=== PATIENT | female | born 1970 | race Caucasian/White ===

== ENCOUNTER 2016-04-16 01:01 | Emergency (ER) | payer BC ==
[~2016-04-16] VITALS: Ht 180.3 cm; Wt 87.1 kg
[~2016-04-16 01:01] MED LIST: DARVOCET N 1001 TAB PO; HYCOSAMINE PO; NKHM; PERCOCET 325 MG1 TA5 PO; WELLBUTRIN SR150 MG PO; WELLBUTRIN100 MG PO
[2016-04-16] MEDS ORDERED: WELLBUTRIN SR150 MG PO (01:31)
[2016-04-16] MEDS ORDERED: WELLBUTRIN XL150 MG PO (01:32)
[2016-04-16] MEDS ORDERED: BUPROPION HCL150 M1 PO (01:33)
[2016-04-16 01:44] LABS: BASO # 0.1 10*3/uL (0.0-0.1); BASO % 0.9 % (0.0-1.0); EOS # 0.3 10*3/uL (0.0-0.4); EOS % 3.4 % (1.0-4.0); HEMATOCRIT 40.5 % (37.0-47.0); HEMOGLOBIN 13.7 g/dl (12.0-16.0); LYMPH # 1.3 10*3/uL (1.3-4.4); LYMPH % 17.2 % (27.0-41.0); MEAN CELL VOLUME 91.8 fl (81.0-99.0); MEAN CORPUSCULAR HGB 31.1 pg (27.0-31.0); MEAN CORPUSCULAR HGB CONC 33.8 g/dl (33.0-37.0); MEAN PLATELET VOLUME 9.5 fl (9.6-12.3); MONO # 1.1 10*3/uL (0.1-1.0); MONO % 13.9 % (3.0-9.0); NEUT % 64.1 % (47.0-73.0); PLATELET COUNT AUTOMATED 221 10*3/uL (130-400); RED BLOOD COUNT 4.41 10*6/uL (4.10-5.10); RED CELL DISTRI WIDTH 12.5 % (0-14.5); WHITE BLOOD COUNT 7.7 10*3/uL (4.8-10.8)
[2016-04-16 02:02] LABS: ALBUMIN 3.6 gm/dl (3.1-4.5); ALKALINE PHOSPHATASE 90 U/L (45-117); BILIRUBIN, DIRECT 0.1 mg/dL (0.0-0.2); BILIRUBIN, TOTAL 0.6 mg/dl (0.2-1.0); BUN 8 mg/dl (7-24); CARBON DIOXIDE 26 mmol/L (21-32); CHLORIDE 104 mmol/L (98-107); EST GLOM FILT AFRICAN AMERICAN > 60 ml/min; GLUCOSE 96 mg/dL (65-99); SGOT/AST 27 IU/L (3-35); SGPT/ALT 65 U/L (12-78); SODIUM 141 mmol/L (136-145); TOTAL PROTEIN 7.1 gm/dL (6.4-8.2)
[2016-04-16 02:03] LABS: TROPONIN I < 0.015 ng/ml (<0.5)
[2016-04-16] MEDS ORDERED: HYDROCODONE BIT1 T11 PO (02:57)
[2016-04-16] MEDS ORDERED: ZOFRAN ODT4 MG SL (02:57)
[2016-04-16] MEDS ORDERED: PROTONIX40 MG PO (02:57)
[2016-05-06] MEDS ORDERED: LOTRONEX PO (08:58)
[2016-05-07] MEDS ORDERED: Zofran4 MG PO (12:07)
[2016-05-07] MEDS ORDERED: NORCO 5-325 TA1 EACH PO (12:08)
== END 2016-04-16 03:11 | disposition home or self-care (01) ==
LOC: ED 01:01
PROVIDERS: Emergency Medicine
DX: R10.13 Epigastric pain (principal); R11.10 Vomiting, unspecified; Z88.0 Allergy status to penicillin; Z79.899 Other long term (current) drug therapy

== ENCOUNTER → 2016-06-07 | Outpatient (CLI) | payer BC ==
[~2016-06-07] MED LIST changes: +BUPROPION HCL150 M1 PO; +HYDROCODONE BIT1 T11 PO; +LOTRONEX PO; +NORCO 5-325 TA1 EACH PO; +PROTONIX40 MG PO; +WELLBUTRIN XL150 MG PO; +ZOFRAN ODT4 MG SL; +Zofran4 MG PO
== END | disposition home or self-care (01) ==
LOC: RESCLI 15:16
DX: L98.9 Disorder of the skin and subcutaneous tissue, unspecified (principal); W55.11XA Bitten by horse, initial encounter; Z88.0 Allergy status to penicillin

== ENCOUNTER → 2016-11-15 | Outpatient (CLI) | payer OTHER, BC | END | disposition home or self-care (01) | LOC: ORTHO 08:58 | DX: M79.671 Pain in right foot (principal) ==

== ENCOUNTER → 2017-02-04 | Outpatient (CLI) | payer OTHER, BC ==
[2017-02-04 11:46] LABS: BILIRUBIN NEGATIVE (NEGATIVE); BLOOD NEGATIVE (NEGATIVE); CLARITY CLEAR (CLEAR); COLOR YELLOW (YELLOW); GLUCOSE NEGATIVE (NEGATIVE); KETONE NEGATIVE (NEGATIVE); LEUKO ESTERASE NEGATIVE (NEGATIVE); NITRITE NEGATIVE (NEGATIVE); PH 5.5 (5.0-9.0); SPECIFIC GRAVITY <= 1.005 (1.005-1.030); UROBILINOGEN 0.2 E.U./dl (0.2-1.0)
[2017-02-04 12:18] LABS: ALBUMIN 3.7 gm/dl (3.1-4.5); ALKALINE PHOSPHATASE 93 U/L (45-117); B-hCG (QUALITATIVE) NEGATIVE (NEGATIVE); BUN 8 mg/dl (7-24); CHLORIDE 103 mmol/L (98-107); CHOLESTEROL 181 mg/dL (<200); CREATININE 0.97 mg/dL (0.55-1.02); GAMMA GLUTAMYL TRANSPEPTIDASE 21 U/L (5-55); HDL CHOLESTEROL 47 mg/dl (40-60); LDL CHOLESTEROL 108 mg/dL (9-159); POTASSIUM 3.6 mmol/L (3.5-5.1); SGOT/AST 23 IU/L (3-35); SGPT/ALT 56 U/L (12-78); SODIUM 135 mmol/L (136-145); T3 UPTAKE 35 % (31-39); TOTAL PROTEIN 7.2 gm/dL (6.4-8.2); TRIGLYCERIDES 128 mg/dl (<150); URIC ACID 3.3 mg/dL (2.6-6.0); VLDL CHOLESTEROL 26 mg/dL (6-40)
[2017-02-04 12:22] LABS: RBC 0-2 rbc/hpf (0-2); WBC 0-2 wbc/hpf (0-5)
[2017-02-04 12:26] LABS: BETA-HCG, QUANT < 1.0 mIU/mL (1-3)
[2017-02-04 12:27] LABS: THYROID STIM HORMONE (HS) 0.984 uIU/ml (0.358-4.75); THYROXINE (T4) TOTAL 9.5 ug/dl (4.8-13.9)
[2017-02-04 13:07] LABS: VITAMIN D, 25-HYDROXY 24.6 ng/mL (30-100)
[2017-02-05 07:07] LABS: DHEA SULFATE 362.2 ug/dL (41.2-243.7); ESTRADIOL 147.3 pg/mL (.); FOLLICLE STIMULATING HORMONE 5.3 mIU/mL (.); PROGESTERONE 004317 7.4 ng/mL (.); PROLACTIN 004465 8.9 ng/mL (4.8-23.3); SEX HORMONE BINDING GLOBULIN 66.5 nmol/L (24.6-122.0)
[2017-02-05 09:08] LABS: RHEUMATOID ARTHRITIS FACTOR <10.0 IU/mL (0.0-13.9)
[2017-02-06 09:10] LABS: TESTOSTERONE FREE, (DIRECT) 2.6 pg/mL (0.0-4.2)
[2017-02-07 01:05] LABS: HUMAN GROWTH HORMONE 1.5 ng/mL (0.0-10.0)
[2017-02-07 12:11] LABS: ANTI-DSDNA ANTIBODIES 096339 <1 IU/mL (0-9)
== END ==
LOC: LAB 11:01
PROVIDERS: Family Medicine
DX: E78.5 Hyperlipidemia, unspecified (principal); R79.89 Other specified abnormal findings of blood chemistry; R53.83 Other fatigue

== ENCOUNTER → 2017-03-24 | Outpatient (CLI) | payer OTHER, BC | END | disposition home or self-care (01) | LOC: MAMMO 09:36 | DX: Z12.31 Encounter for screening mammogram for malignant neoplasm of breast (principal) ==

== ENCOUNTER → 2017-10-27 | Outpatient (CLI) | payer OTHER, BC ==
[2017-10-27 09:05] LABS: BILIRUBIN NEGATIVE (NEGATIVE); BLOOD 1+ (NEGATIVE); CLARITY CLEAR (CLEAR); COLOR YELLOW (YELLOW); GLUCOSE NEGATIVE (NEGATIVE); KETONE NEGATIVE (NEGATIVE); LEUKO ESTERASE NEGATIVE (NEGATIVE); NITRITE NEGATIVE (NEGATIVE); SPECIFIC GRAVITY 1.015 (1.005-1.030); UROBILINOGEN 0.2 E.U./dl (0.2-1.0)
[2017-10-27 09:10] LABS: BASO # 0.1 10*3/uL (0.0-0.1); EOS # 0.2 10*3/uL (0.0-0.4); EOS % 3.4 % (1.0-4.0); HEMATOCRIT 39.1 % (37.0-47.0); HEMOGLOBIN 13.7 g/dl (12.0-16.0); LYMPH # 1.3 10*3/uL (1.3-4.4); LYMPH % 20.3 % (27.0-41.0); MEAN CELL VOLUME 91.6 fl (81.0-99.0); MEAN CORPUSCULAR HGB 32.1 pg (27.0-31.0); MEAN PLATELET VOLUME 9.6 fl (9.6-12.3); MONO # 0.5 10*3/uL (0.1-1.0); MONO % 8.5 % (3.0-9.0); NEUT # 4.1 10*3/uL (2.3-7.9); NEUT % 66.5 % (47.0-73.0); PLATELET COUNT AUTOMATED 214 10*3/uL (130-400); RED BLOOD COUNT 4.27 10*6/uL (4.10-5.10); RED CELL DISTRI WIDTH 12.7 % (0-14.5); RETICULOCYTE % 2.33 % (0.50-2.50); WHITE BLOOD COUNT 6.2 10*3/uL (4.8-10.8)
[2017-10-27 09:40] LABS: ALBUMIN 3.4 gm/dl (3.1-4.5); BUN 7 mg/dl (7-24); CHLORIDE 102 mmol/L (98-107); POTASSIUM 3.8 mmol/L (3.5-5.1); SODIUM 137 mmol/L (136-145)
[2017-10-27 09:54] LABS: ALKALINE PHOSPHATASE 85 U/L (45-117); CHOLESTEROL 185 mg/dL (<200); CREATININE 1.14 mg/dL (0.55-1.02); GAMMA GLUTAMYL TRANSPEPTIDASE 27 U/L (5-55); HDL CHOLESTEROL 50 mg/dl (40-60); IRON 88 ug/dL (50-170); LDL CHOLESTEROL 109 mg/dL (9-159); SGOT/AST 26 IU/L (3-35); SGPT/ALT 52 U/L (12-78); TOTAL IRON BINDING CAPACITY 184 ug/dl (250-450); TOTAL PROTEIN 6.6 gm/dL (6.4-8.2); TRIGLYCERIDES 132 mg/dl (<150); VLDL CHOLESTEROL 26 mg/dL (6-40)
[2017-10-27 10:22] LABS: BACTERIA 1+; WBC 0-2 wbc/hpf (0-5)
== END | disposition home or self-care (01) ==
LOC: LAB 08:37
PROVIDERS: Family Medicine
DX: E78.5 Hyperlipidemia, unspecified (principal); R06.02 Shortness of breath; D86.0 Sarcoidosis of lung; R79.89 Other specified abnormal findings of blood chemistry; R53.83 Other fatigue

== ENCOUNTER → 2018-07-05 | Day surgery (SDC) | payer OTHER, BC ==
[~2018-07-05] VITALS: Ht 180.3 cm; Wt 83.5 kg
[~2018-07-05] MED LIST changes: +PROTONIX20 MG PO
--- NOTE | ~2018-07-05 | O ---
[place], [place] OPERATIVE NOTE NAME: MELISSA WAYNE UNIT #: [id number] ROOM: DOCTOR: ALEKSANDR RIVERO MD BIRTHDATE: [birth year] DOS: 07/05/2018 HISTORY OF PRESENT ILLNESS: A 47-year-old patient who has presented with chief complaint of dyspepsia, undergoing investigation. The patient on Protonix 20 mg b.i.d., 40 mg total, Lotronex 0.5 mg daily, and ipratropium hydrochloride 150 mg daily. ALLERGIES: PENICILLIN. PAST MEDICAL HISTORY: IBS, gastritis, and depression. SOCIAL HISTORY: Nonsmoker, nonalcohol consumer. PAST SURGICAL HISTORY: Cholecystectomy, tubal ligation, and mediastinoscopy. PROCEDURE: Today's procedure part of investigation is nguyen endoscopy plus biopsy. PREMEDICATION: Propofol. SCOPE: Olympus forward-viewing gastroscope Q10 video. REPORT: After putting the patient in left lateral position and application of lubricant to the scope, the scope was introduced. Thereafter, under direct visualization, advanced through the length of esophagus without difficulty. Small hiatal hernia 1.5 cm was noticed. Gastric pouch was entered. Gastritis of mild degree seen. Antral biopsy obtained. Duodenal bulb, second and third part within normal limits. The patient was gradually extubated after GI reflection of the scope reveals cardia to be benign. IMPRESSION: A small hiatal hernia, mild gastritis. PLAN AND DISCUSSION: Continuation with Protonix 40 mg daily, antireflux with elevation of the head of the bed 8 inches all time, avoiding alcohol, and nicotine product that she is telling me socially she is consuming and as far as her irritable bowel syndrome she can continue with her Lotronex 0.5 mg daily, which has responded to control her diarrhea with irritable bowel syndrome, and follow up routinely with you in office, p.r.n. visit with us in GI Clinic. Due to the fact the patient has a sensation of distress in the throat and chronic nicotine exposure I am going to organize an ENT visit. Thank you very much indeed for your kind referral. [place], [place] OPERATIVE NOTE NAME: MELISSA WAYNE UNIT #: [id number] ROOM: DOCTOR: ALEKSANDR RIVERO MD BIRTHDATE: [birth year] ALEKSANDR RIVERO MD CM:PRESLEY:OPERATIVE NOTE [id number] MANOLO RIVERO MD 07/05/18 1433 interface
[2018-07-05 10:18] VITALS: BP 121/81
[2018-07-05 11:48] VITALS: BP 119/77
[2018-07-05 12:03] VITALS: BP 117/79
[2018-07-05 12:18] VITALS: BP 107/90
== END | disposition home or self-care (01) ==
LOC: SDC 06-30 14:00
DX: K29.50 Unspecified chronic gastritis without bleeding (principal); K44.9 Diaphragmatic hernia without obstruction or gangrene; K21.9 Gastro-esophageal reflux disease without esophagitis; F32.9 Major depressive disorder, single episode, unspecified; Z88.0 Allergy status to penicillin; Z98.890 Other specified postprocedural states; Z90.49 Acquired absence of other specified parts of digestive tract; Z72.89 Other problems related to lifestyle; Z79.899 Other long term (current) drug therapy; Z98.51 Tubal ligation status; Z82.49 Family history of ischemic heart disease and other diseases of the circulatory system; Z83.3 Family history of diabetes mellitus

== ENCOUNTER → 2019-05-08 | Outpatient (CLI) | payer BC ==
[2019-05-08 12:40] LABS: BASO # 0.1 10*3/uL (0.0-0.1); EOS # 0.3 10*3/uL (0.0-0.4); EOS % 4.6 % (1.0-4.0); HEMATOCRIT 44.3 % (37.0-47.0); HEMOGLOBIN 15.1 g/dl (12.0-16.0); LYMPH # 1.6 10*3/uL (1.3-4.4); LYMPH % 24.2 % (27.0-41.0); MEAN CELL VOLUME 94.7 fl (81.0-99.0); MEAN CORPUSCULAR HGB 32.3 pg (27.0-31.0); MEAN CORPUSCULAR HGB CONC 34.1 g/dl (33.0-37.0); MEAN PLATELET VOLUME 9.5 fl (9.6-12.3); MONO # 0.5 10*3/uL (0.1-1.0); MONO % 7.9 % (3.0-9.0); NEUT # 4.2 10*3/uL (2.3-7.9); PLATELET COUNT AUTOMATED 254 10*3/uL (130-400); RED BLOOD COUNT 4.68 10*6/uL (4.10-5.10); RETICULOCYTE % 1.52 % (0.50-2.50); WHITE BLOOD COUNT 6.7 10*3/uL (4.8-10.8)
[2019-05-08 12:56] LABS: ALBUMIN 3.8 gm/dl (3.1-4.5); ALKALINE PHOSPHATASE 102 U/L (45-117); BUN 10 mg/dl (7-24); CHLORIDE 104 mmol/L (98-107); CHOLESTEROL 221 mg/dL (<200); CREATININE 1.06 mg/dL (0.55-1.02); GAMMA GLUTAMYL TRANSPEPTIDASE 26 U/L (5-55); HDL CHOLESTEROL 48 mg/dl (40-60); IRON 86 ug/dL (50-170); LDL CHOLESTEROL 104 mg/dL (9-159); POTASSIUM 4.2 mmol/L (3.5-5.1); SGOT/AST 26 IU/L (3-35); SGPT/ALT 56 U/L (12-78); SODIUM 136 mmol/L (136-145); T3 UPTAKE 35 % (31-39); THYROXINE (T4) TOTAL 9.4 ug/dl (4.8-13.9); TOTAL IRON BINDING CAPACITY 189 ug/dl (250-450); TOTAL PROTEIN 7.6 gm/dL (6.4-8.2); TRIGLYCERIDES 345 mg/dl (<150); VLDL CHOLESTEROL 69 mg/dL (6-40)
[2019-05-08 13:09] LABS: BILIRUBIN NEGATIVE (NEGATIVE); CLARITY SL CLOUDY (CLEAR); COLOR YELLOW (YELLOW); GLUCOSE NEGATIVE (NEGATIVE); KETONE NEGATIVE (NEGATIVE)
[2019-05-08 13:10] LABS: BACTERIA 1+; BLOOD NEGATIVE (NEGATIVE); LEUKO ESTERASE TRACE (NEGATIVE); NITRITE NEGATIVE (NEGATIVE); UROBILINOGEN 0.2 E.U./dl (0.2-1.0)
[2019-05-08 14:07] LABS: FERRITIN 123.6 ng/mL (10.0-291.0); VITAMIN D, 25-HYDROXY 20.9 ng/mL (30-100)
== END | disposition home or self-care (01) ==
LOC: LAB 12:10
PROVIDERS: Family Medicine
DX: R06.02 Shortness of breath (principal); R79.89 Other specified abnormal findings of blood chemistry; M19.90 Unspecified osteoarthritis, unspecified site; R53.83 Other fatigue; E55.9 Vitamin D deficiency, unspecified

== ENCOUNTER → 2020-01-14 | Outpatient (CLI) | payer BC | END | disposition home or self-care (01) | LOC: RAD 13:23 | PROVIDERS: ATTEND Family Medicine | DX: M25.562 Pain in left knee (principal) ==

== ENCOUNTER → 2020-08-28 | Outpatient (CLI) | payer BC ==
[2020-08-28 09:11] LABS: BASO # 0.1 10*3/uL (0.0-0.1); BASO % 1.4 % (0.0-1.0); EOS # 0.4 10*3/uL (0.0-0.4); EOS % 5.1 % (1.0-4.0); HEMATOCRIT 42.2 % (37.0-47.0); LYMPH # 1.7 10*3/uL (1.3-4.4); LYMPH % 23.5 % (27.0-41.0); MEAN CELL VOLUME 94.2 fl (81.0-99.0); MEAN CORPUSCULAR HGB 31.7 pg (27.0-31.0); MEAN CORPUSCULAR HGB CONC 33.6 g/dl (33.0-37.0); MEAN PLATELET VOLUME 9.5 fl (9.6-12.3); MONO # 0.7 10*3/uL (0.1-1.0); NEUT # 4.3 10*3/uL (2.3-7.9); NEUT % 59.6 % (47.0-73.0); PLATELET COUNT AUTOMATED 271 10*3/uL (130-400); RED BLOOD COUNT 4.48 10*6/uL (4.10-5.10); RED CELL DISTRI WIDTH 12.6 % (0-14.5); RETICULOCYTE % 2.21 % (0.50-2.50); WHITE BLOOD COUNT 7.3 10*3/uL (4.8-10.8)
[2020-08-28 09:13] LABS: BILIRUBIN Negative (Negative); BLOOD Negative (Negative); CLARITY Clear (Clear); COLOR Yellow (Yellow); GLUCOSE Negative (Negative); KETONE Negative (Negative); LEUKO ESTERASE Negative (Negative); NITRITE Negative (Negative); SPECIFIC GRAVITY <= 1.005 (1.001-1.030); UROBILINOGEN 0.2 E.U./dl (0.0-1.0)
[2020-08-28 09:43] LABS: ALBUMIN 3.6 gm/dl (3.1-4.5); BUN 8 mg/dl (7-24); CHLORIDE 105 mmol/L (98-107); CHOLESTEROL 223 mg/dL (<200); GAMMA GLUTAMYL TRANSPEPTIDASE 95 U/L (5-55); POTASSIUM 3.9 mmol/L (3.5-5.1); SODIUM 136 mmol/L (136-145); TRIGLYCERIDES 132 mg/dl (<150)
[2020-08-28 09:53] LABS: ALKALINE PHOSPHATASE 128 U/L (45-117); CREATININE 0.94 mg/dL (0.55-1.02); IRON 88 ug/dL (50-170); LDL CHOLESTEROL 140 mg/dL (9-159); SGOT/AST 48 IU/L (3-35); SGPT/ALT 121 U/L (12-78); TOTAL IRON BINDING CAPACITY 194 ug/dl (250-450); TOTAL PROTEIN 7.8 gm/dL (6.4-8.2)
[2020-08-28 10:09] LABS: BACTERIA TRACE; WBC 0-2 wbc/hpf (0-5)
[2020-08-28 13:24] LABS: FERRITIN 174.5 ng/mL (10.0-291.0); VITAMIN D, 25-HYDROXY 22.4 ng/mL (30-100)
== END | disposition home or self-care (01) ==
LOC: LAB 00:04 → MAMMO 10:30
PROVIDERS: ATTEND Family Medicine
DX: R79.89 Other specified abnormal findings of blood chemistry (principal); R53.83 Other fatigue; E55.9 Vitamin D deficiency, unspecified

== ENCOUNTER → 2021-10-12 | Outpatient (CLI) | payer BC ==
[2021-10-12 10:07] LABS: BILIRUBIN Negative (Negative); BLOOD Negative (Negative); CLARITY Clear (Clear); COLOR Yellow (Yellow); GLUCOSE Negative (Negative); KETONE Negative (Negative); LEUKO ESTERASE Negative (Negative); NITRITE Negative (Negative); PH 6.5 (4.5-8.0); SPECIFIC GRAVITY <= 1.005 (1.001-1.030)
[2021-10-12 10:08] LABS: BASO # 0.1 10*3/uL (0.0-0.1); BASO % 1.1 % (0.0-1.0); EOS # 0.2 10*3/uL (0.0-0.4); EOS % 3.6 % (1.0-4.0); HEMATOCRIT 40.9 % (37.0-47.0); LYMPH # 1.2 10*3/uL (1.3-4.4); MEAN CELL VOLUME 91.1 fl (81.0-99.0); MEAN CORPUSCULAR HGB 32.3 pg (27.0-31.0); MEAN CORPUSCULAR HGB CONC 35.5 g/dl (33.0-37.0); MONO # 0.6 10*3/uL (0.1-1.0); MONO % 9.4 % (3.0-9.0); NEUT # 4.1 10*3/uL (2.3-7.9); NEUT % 66.7 % (47.0-73.0); PLATELET COUNT AUTOMATED 256 10*3/uL (130-400); RED BLOOD COUNT 4.49 10*6/uL (4.10-5.10); RED CELL DISTRI WIDTH 11.8 % (0-14.5); RETICULOCYTE % 1.97 % (0.50-2.50); WHITE BLOOD COUNT 6.2 10*3/uL (4.8-10.8)
[2021-10-12 10:26] LABS: EPITHELIAL CELLS 0-2
[2021-10-12 10:37] LABS: CHLORIDE 104 mmol/L (98-107); POTASSIUM 3.5 mmol/L (3.5-5.1); SODIUM 136 mmol/L (136-145)
[2021-10-12 10:57] LABS: ALKALINE PHOSPHATASE 112 U/L (45-117); BUN 5 mg/dl (7-24); CHOLESTEROL 215 mg/dL (<200); CREATININE 0.88 mg/dL (0.55-1.02); GAMMA GLUTAMYL TRANSPEPTIDASE 72 U/L (5-55); IRON 140 ug/dL (50-170); LDL CHOLESTEROL 130 mg/dL (9-159); SGOT/AST 66 IU/L (3-35); SGPT/ALT 136 U/L (12-78); TOTAL PROTEIN 7.8 gm/dL (6.4-8.2); TRIGLYCERIDES 88 mg/dl (<150)
[2021-10-12 11:02] LABS: FERRITIN 238.8 ng/mL (10.0-291.0); VITAMIN D, 25-HYDROXY 40.6 ng/mL (30-100)
== END | disposition home or self-care (01) ==
LOC: LAB 08:52 → MAMMO 09:00
PROVIDERS: ATTEND Family Medicine
DX: Z12.31 Encounter for screening mammogram for malignant neoplasm of breast (principal); E78.5 Hyperlipidemia, unspecified; E55.9 Vitamin D deficiency, unspecified; R74.8 Abnormal levels of other serum enzymes; R53.83 Other fatigue; R79.89 Other specified abnormal findings of blood chemistry; R06.02 Shortness of breath

== ENCOUNTER → 2024-04-19 | Outpatient (CLI) | payer BC | END | disposition home or self-care (01) | LOC: US 08:00 | PROVIDERS: ATTEND Family Medicine | DX: K76.0 Fatty (change of) liver, not elsewhere classified (principal); R10.84 Generalized abdominal pain; R16.1 Splenomegaly, not elsewhere classified; R10.2 Pelvic and perineal pain; Z90.49 Acquired absence of other specified parts of digestive tract ==

== ENCOUNTER → 2024-07-10 | Outpatient (CLI) | payer BC ==
[2024-07-10 16:05] LABS: BILIRUBIN Negative (Negative); BLOOD Negative (Negative); CLARITY Clear (Clear); COLOR Yellow (Yellow); GLUCOSE Negative (Negative); KETONE Negative (Negative); LEUKO ESTERASE Negative (Negative); NITRITE Negative (Negative); PH 6.5 (4.5-8.0); SPECIFIC GRAVITY <= 1.005 (1.001-1.030)
[2024-07-10 16:06] LABS: BASO # 0.1 10*3/uL (0.0-0.1); BASO % 1.2 % (0.0-1.0); EOS # 0.3 10*3/uL (0.0-0.4); EOS % 5.7 % (1.0-4.0); HEMATOCRIT 38.4 % (37.0-47.0); MEAN CELL VOLUME 91.6 fl (81.0-99.0); MEAN CORPUSCULAR HGB CONC 34.9 g/dl (33.0-37.0); MONO # 0.6 10*3/uL (0.1-1.0); MONO % 12.4 % (3.0-9.0); NEUT # 2.6 10*3/uL (2.3-7.9); PLATELET COUNT AUTOMATED 220 10*3/uL (130-400); RED BLOOD COUNT 4.19 10*6/uL (4.10-5.10); RED CELL DISTRI WIDTH 12.1 % (0-14.5); RETICULOCYTE % 2.78 % (0.50-2.50); WHITE BLOOD COUNT 4.9 10*3/uL (4.8-10.8)
[2024-07-10 16:37] LABS: ALKALINE PHOSPHATASE 120 U/L (46-116); BUN 6 mg/dl (9-23); CHLORIDE 102 mmol/L (98-107); CHOLESTEROL 220 mg/dL (<200); GAMMA GLUTAMYL TRANSPEPTIDASE 37 U/L (0-73); LDL CHOLESTEROL 128 mg/dL (9-159); POTASSIUM 3.6 mmol/L (3.4-5.1); SGPT/ALT 83 U/L (5-49); T3 UPTAKE 31.1 % (22.4-36.7); THYROXINE (T4) TOTAL 6.9 ug/dl (4.5-10.9); TOTAL PROTEIN 7.3 gm/dL (6.0-8.0); TRIGLYCERIDES 131 mg/dl (<150); URIC ACID 3.5 mg/dL (3.1-7.8)
[2024-07-10 17:01] LABS: VITAMIN D, 25-HYDROXY 35.8 ng/mL (30-100)
[2024-07-10 17:09] LABS: BACTERIA 1+
[2024-07-11 11:07] LABS: ANTI-DSDNA ANTIBODIES <1 IU/mL (0-9)
== END | disposition home or self-care (01) ==
LOC: LAB 15:32
PROVIDERS: ATTEND Family Medicine
DX: R06.02 Shortness of breath (principal); R79.89 Other specified abnormal findings of blood chemistry; R53.83 Other fatigue; E78.5 Hyperlipidemia, unspecified; E55.9 Vitamin D deficiency, unspecified